=== PATIENT | female | born 2000 | race Caucasian/White ===

== ENCOUNTER 2023-10-02 13:41 | Emergency (ER) | payer OTHER ==
[2023-10-02] MEDS ORDERED: Acetaminophen 500 MG TAB ONE (14:14)
== END 2023-10-02 15:26 | disposition home or self-care (01) ==
LOC: ERS 13:41
DX: S50.01XA Contusion of right elbow, initial encounter (principal); S80.01XA Contusion of right knee, initial encounter; W05.1XXA Fall from non-moving nonmotorized scooter, initial encounter